=== PATIENT | male | born 1970 | race Caucasian/White ===

== ENCOUNTER 2018-01-27 12:50 | Emergency (ER) | payer OTHER ==
--- NOTE | 2018-01-27 12:56 | ED Physician Documentation ---
Abdominal Pain - HISTORIAN Historian: patient - HPI Chief Complaint: Abdominal Pain Additonal Information: Patient states that he has some right flank pain and then shortly thereafte developed some sever RLL pain. No precipitating or modifying factors noted. Pain came on quickly and became quite severe. Patient stated that it made him feel like he needed to have a BM but couldn't. Has never had any similar pain previously. No history or family history of kidney stones. No hematuria noted. Onset: minutes (90) Duration: constant Timing: still present Context: denies: out of country travel, bad food Severity: severe Quality: pain, sharp Associated Symptoms: nausea. denies: fever, chills, vomiting Exacerbated by: nothing Relieved by: nothing - ROS CONST: no problems GI/: none. denies: constipation, black stools, bloody urine, bloody stools, dark urine CVS/RESP: denies: palpitations MS/SKIN/LYMPH: denies: rash NEURO/PSYCH: denies: headache, dizziness, light-headedness - SOCIAL HX Smoking History: non-smoker Alcohol Use: none Drug Use: none - FAMILY HX Family History: no significant history - PAST HX Past History: other (DM type 2, Fatty liver disease) Ischemic Bowel Risk Factors: none Other History: none Surgeries/Procedures: appendectomy, cholecystectomy, other (acl reconstruction) Home Medications: Ambulatory Orders Medication Instructions Recorded Glipizide [Glipizide] 5 mg PO DAILY 01/27/18 Metformin HCl [Metformin HCl] 1,000 mg PO BID 01/27/18 Tamsulosin HCl [Flomax] 0.4 mg PO [id number] #14 cap.er.24h 01/27/18 Tramadol HCl [Ultram] 50 mg PO Q6 PRN #10 tablet 01/27/18 amLODIPine BESYLATE [Norvasc] 10 mg PO 0900 01/27/18 Allergies/Adverse Reactions: Allergies Allergy/AdvReac Type Severity Reaction Status Date / Time No Known Allergies Allergy Verified 01/27/18 13:14 - VITAL SIGNS Vital Signs: Vital Signs Temp Pulse Resp BP Pulse Ox 98 F 70 18 133/56 99 01/27/18 12:50 01/27/18 14:30 01/27/18 14:30 01/27/18 14:30 01/27/18 14:30 - REVIEWED ASSESSMENTS Nursing Assessment Reviewed: Yes Vitals Reviewed: Yes ED Results Lab/Radiology - Lab Results Lab Results: Lab Results 01/27/18 01/27/18 13:05 13:00 WBC 8.80 K/ul K/ul (4.00-12.00) RBC 5.20 M/ul M/ul (3.90-5.20) Hgb 15.6 g/dL g/dL (12.0-18.0) Hct 45.1 % % (37.0-53.0) MCV 86.8 fl fl (80.0-100.0) MCH 30.1 pg pg (28.0-34.0) MCHC 34.7 g/dL g/dL (30.0-36.0) RDW 13.7 % % (11.3-14.3) Plt Count 277 K/mm3 K/mm3 (130-400) Neut % (Auto) 55.2 % % (39.0-79.0) Lymph % (Auto) 34.5 % % (16.0-50.0) Bulloch % (Auto) 5.1 % % (0.0-11.0) Eos % (Auto) 2.7 % % (0.0-6.8) Baso % (Auto) 0.5 (0.0-1.5) Neut # (Auto) 4.9 # k/uL # k/uL (1.4-7.7) Lymph # (Auto) 3.0 # k/uL # k/uL (0.6-4.0) Bulloch # (Auto) 0.4 # k/uL # k/uL (0.0-0.9) Eos # (Auto) 0.2 # k/uL # k/uL (0.0-0.6) Baso # (Auto) 0.0 # k/uL # k/uL (0.0-0.5) Reactive Lymphs % 2.0 % % (0.0-5.0) Reactive Lymphs # 0.2 # k/uL # k/uL (0.0-0.8) Sodium 140 mmol/L mmol/L (136-145) Potassium 3.9 mmol/L mmol/L (3.5-5.1) Chloride 98 mmol/L mmol/L (98-107) Total Carbon Dioxide 23 mmol/L mmol/L (22-29) BUN 16 mg/dL mg/dL (6-20) Creatinine 1.24 mg/dL mg/dL (0.40-1.50) Estimated GFR mL/min 84 L Glucose 180 mg/dL H mg/dL (70-99 Fasting) Calcium 10.4 mg/dL H mg/dL (8.6-10.2) Total Bilirubin <0.3 mg/dL mg/dL (<1.2) AST 48 U/L H U/L (<40) ALT 46 U/L H U/L (<42) Alkaline Phosphatase 80 U/L U/L (40-129) Total Protein 8.0 g/dL g/dL (6.0-8.5) Albumin 4.3 g/dL g/dL (3.5-5.2) - Radiology Radiology Impressions: Examination: CT Abdomen/pelvis History: RT FLANK/ABDOMEN PAIN X 2 HOURS STONE PROTOCOL (Hx) Comparison exams: None available Technique: CT Abdomen/pelvis without IV protocol. Findings: Minimal prominence of the right kidney when compared with the left. Right perinephric and periureteric stranding. No evidence for renal cortical or ureteral calcification. Just within the bladder near the right ureterovesicular junction is a 2 mm calcification. Left kidney without abnormal enlargement or ureteral dilation. No left-sided suspicious calcification. Liver, spleen, adrenals, and pancreas are without gross irregularity given exam technique. Gallbladder not well visualized. Abdominal aorta without aneurysm. Minimal peripheral atherosclerotic disease. Cardiac silhouette is not enlarged. No pericardial effusion. Bowel unopacified limiting evaluation. No abnormal dilation. Stool within the large bowel limiting sensitivity. No mesenteric inflammatory changes or free fluid. Surgical sutures in the region of the cecum. Osseous structures demonstrate degenerative spurring. No compression deformity. Lung bases without infiltrate. No effusion. Impression: Small calcification within the bladder near the right ureterovesicular junction. Mildly dilated right ureter. Associated stranding of the right kidney and ureter. Findings compatible with recently passed right ureterolithiasis. No acute upper abdominal organ inflammatory process. No abnormal bowel dilation or inflammation. No lung base consolidation or effusion - Orders Orders: ED Orders Category Date Time Status Place IV Lock 1T Care 01/27/18 12:[address] ABD & PELVIS W/O CON Stat Exams 01/27/18 Taken CBC/PLATELET/DIFF Stat Lab 01/27/18 13:05 Completed URINALYSIS Routine Lab 01/27/18 Ordered 0.9 % Sodium Chloride [Normal Saline] 1,000 ml Med 01/27/18 13:00 Discontinued IV .Q1H 0.9 % Sodium Chloride [Normal Saline] 1,000 ml Med 01/27/18 12:58 Discontinued IV .STK-MED Ketorolac Tromethamine [Toradol] Med 01/27/18 12:58 Discontinued 30 mg .ROUTE .STK-MED ONE Ketorolac Tromethamine [Toradol] Med 01/27/18 12:56 Discontinued 30 mg IVP NOW ONE Ondansetron HCl/Pf [Zofran 4 mg/2 ml] Med 01/27/18 12:58 Discontinued 4 mg .ROUTE .STK-MED ONE Ondansetron HCl/Pf [Zofran 4 mg/2 ml] Med 01/27/18 12:58 Discontinued 4 mg IVP NOW ONE Tamsulosin HCl [Flomax] Med 01/27/18 13:26 Discontinued 0.4 mg PO .STK-MED ONE Tamsulosin HCl [Flomax] Med 01/27/18 18:00 Discontinued 0.4 mg PO [id number] CITRATE/PF [Duragesic] Med 01/27/18 13:24 Discontinued 50 mcg IVP NOW ONE Abdominal Pain Physical Exam - Physical Exam General Appearance: severe distress, anxious NECK: normal inspection, thyroid normal, supple RESPIRATORY: no resp distress, chest non-tender, breath sounds normal. No: wheezes, rales, rhonchi CVS: reg rate & rhythm, heart sounds normal, equal pulses, no murmur, no gallop ABDOMEN: soft, normal bowel sounds, no distension BACK: normal inspection, no CVA tenderness SKIN: diaphoresis NEURO: oriented X3, CN's nml as tested, motor nml, sensation nml, mood/affect nml, cognition normal Vital Signs: Vital Signs Temp Pulse Resp BP Pulse Ox 98 F 70 18 133/56 99 01/27/18 12:50 01/27/18 14:30 01/27/18 14:30 01/27/18 14:30 01/27/18 14:30 Discharge Clincal Impression: Kidney stone on right side Prescriptions: Tamsulosin HCl [Flomax] 0.4 mg PO [id number] #14 cap.er.24h Tramadol HCl [Ultram] 50 mg PO Q6 PRN #10 tablet PRN Reason: Pain Referrals: Ellie Goldstein MD [Primary Care Provider] - 2 Days Additional Instructions: Patient was advised to drink a lot of water. Strain urine for the next several days. Take pain medication as directed if needed. If you have any further problems to return to the ED or see your PCP. Condition: Stable Disposition: 01 HOME, SELF-CARE Decision to Admit: NO Date of Decison to Admit: 01/27/18 Decision Time: 13:39
[2018-01-27] MEDS: 0.9 % SODIUM CHLORIDE 1,000 ML IV SCH (13:00)
[2018-01-27] MEDS: ONDANSETRON HCL/PF 4 MG/ 2ML VIAL IVP ONE (13:02)
[2018-01-27] MEDS: KETOROLAC TROMETHAMINE 30 MG/1ML VIAL IVP ONE (13:04)
[2018-01-27] MEDS: ONDANSETRON HCL/PF 4 MG/ 2ML VIAL ONE (13:16)
[2018-01-27] MEDS: KETOROLAC TROMETHAMINE 30 MG/1ML VIAL ONE (13:17)
[2018-01-27 13:24] LABS: BASOPHILS % 0.5 (0.0-1.5); EOSINOPHILS % 2.7 % (0.0-6.8); MEAN CORPUSCULAR HEMOGLOBIN 30.1 pg (28.0-34.0); MEAN CORPUSCULAR VOLUME 86.8 fl (80.0-100.0); MONOCYTES % 5.1 % (0.0-11.0); NEUTROPHILS # 4.9 # k/uL (1.4-7.7)
[2018-01-27] MEDS: TAMSULOSIN HCL 0.4 MG CAP.ER.24H PO SCH (13:25)
[2018-01-27] MEDS ORDERED: TAMSULOSIN HCL 0.4 MG CAP.ER.24H PO ONE (13:26)
[2018-01-27] MEDS: fentaNYL CITRATE/PF 100 MCG/ 2ML AMP IVP ONE (13:26)
[2018-01-27 14:37] VITALS: BP 133/56
[2018-01-27] MEDS: 0.9 % SODIUM CHLORIDE 1,000 ML IV ONE (14:37)
--- NOTE | 2018-01-27 20:05 | Diagnostic Imaging Report ---
YELENA LEWIS [facility] [address] [address] [place], [place]. [address] Report Submission Date: January 27, 2018 1:58:03 PM CDT Patient Study Name: ANASTACIO LAUGHLIN Date: January 27, 2018 1:29:15 PM CDT Modality Type: CT\SR Gender: M Description: CT ABD PELVIS W/O CO : 66 Institution: [facility] Physician: YELENA LEWIS Examination: CT Abdomen/pelvis History: RT FLANK/ABDOMEN PAIN X 2 HOURS STONE PROTOCOL (Hx) Comparison exams: None available Technique: CT Abdomen/pelvis without IV protocol. Findings: Minimal prominence of the right kidney when compared with the left. Right perinephric and periureteric stranding. No evidence for renal cortical or ureteral calcification. Just within the bladder near the right ureterovesicular junction is a 2 mm calcification. Left kidney without abnormal enlargement or ureteral dilation. No left-sided suspicious calcification. Liver, spleen, adrenals, and pancreas are without gross irregularity given exam technique. Gallbladder not well visualized. Abdominal aorta without aneurysm. Minimal peripheral atherosclerotic disease. Cardiac silhouette is not enlarged. No pericardial effusion. Bowel unopacified limiting evaluation. No abnormal dilation. Stool within the large bowel limiting sensitivity. No mesenteric inflammatory changes or free fluid. Surgical sutures in the region of the cecum. Osseous structures demonstrate degenerative spurring. No compression deformity. Lung bases without infiltrate. No effusion. Impression: Small calcification within the bladder near the right ureterovesicular junction. Mildly dilated right ureter. Associated stranding of the right kidney and ureter. Findings compatible with recently passed right ureterolithiasis. No acute upper abdominal organ inflammatory process. No abnormal bowel dilation or inflammation. No lung base consolidation or effusion. Electronically signed on January 27, 2018 1:58:03 PM CDT by: Cb REED
[2018-01-28 03:58] LABS: APPEARANCE,URINE CLEAR (CLEAR); COLOR,URINE YELLOW (YELLOW); OCCULT BLOOD,URINE 2+ (NEGATIVE); PH URINE 5.5 (5.0 - 8.0); UROBILINOGEN URINE 0.2 Eu (0.2-1.0)
== END 2018-01-27 14:30 | disposition home or self-care (01) ==
LOC: ED 12:50
DX: N20.0 Calculus of kidney (principal)
CPT/HCPCS: 74176; 80053; 81002; 85025; J1885; J2405; J3010; J7030; 96360; 96374; 96375; 99284; S1016

== ENCOUNTER 2018-01-29 14:51 | Outpatient (CLI) | payer OTHER | END 2018-01-29 14:53 | LOC: LAB 14:51 | PROVIDERS: ATTEND Family Medicine | DX: N20.0 Calculus of kidney (principal) | CPT/HCPCS: 82365 ==